=== PATIENT | male | born 1975 | race Caucasian/White ===

== ENCOUNTER 2023-03-23 14:38 | Emergency (ER) | payer MEDICARE ==
[~2023-03-23] VITALS: Ht 172.7 cm; Wt 68.0 kg
[2023-03-23] MEDS ORDERED: PRAHYD1AE TOP (16:46)
[2023-03-23 17:17] VITALS: BP 128/89
== END 2023-03-23 17:18 | disposition home or self-care (01) ==
LOC: ER 14:38
DX: K64.8 Other hemorrhoids (principal)
CPT/HCPCS: 99282